=== PATIENT | female | born 1970 | race African-American/Black ===

== ENCOUNTER 2016-07-22 10:02 | Day surgery (SDC) | payer OTHER ==
[~2016-07-22] VITALS: Ht 175.3 cm; Wt 97.5 kg
[~2016-07-22 10:02] MED LIST: BUPIVACAINE MPF 0.5% 30 ML VIAL. ONE; CLINDAMYCIN 600MG PREMIX 50 ML IV PRN; DEXAMETHASONE SOD PHOS 4 MG/ML VIAL ONE; ESTROGENS, CONJ VAGINAL CREAM 30GM TUBE. ONE; HYDROmorphone 2 MG/ML VIAL IV PRN; IV RINGERS,LACTATED 1000ML 1,000 ML IV SCH; LIDOCAINE 1% 1 ML SYRINGE. ID PRN; LIDOCAINE 1% PF 30 ML VIAL. ONE; MORPHINE SULFATE 2 MG/ML DISP.SYRIN. IV PRN; ONDANSETRON PF 4 MG/2 ML VIAL. IV PRN; POVIDONE-IODINE 10% TOPICAL OINTMENT 28GM TUBE. TP ONE; PROCHLORPERAZINE 10 MG/2 ML VIAL. IV PRN; fentaNYL PF VIAL 100 MCG/2 ML VIAL IV PRN
[2016-07-22] MEDS ORDERED: PROPOFOL 20 ML IV ONE ×2 (10:34→12:32)
[2016-07-22] MEDS ORDERED: LIDOCAINE 2% PF Vial for OR 5 ML VIAL. ONE (10:34)
[2016-07-22] MEDS ORDERED: ONDANSETRON PF 4 MG/2 ML VIAL. ONE (10:34)
[2016-07-22] MEDS ORDERED: fentaNYL PF VIAL 100 MCG/2 ML VIAL ONE ×2 (10:34→12:36)
[2016-07-22] MEDS ORDERED: DEXAMETHASONE SOD PHOS 20 MG/5 ML VIAL. ONE (10:34)
[2016-07-22] MEDS ORDERED: NAPR220C4 PO (10:41)
[2016-07-22 11:02] LABS: NEG OBC UR NEG; POS OBC UR POS
[2016-07-22 11:21] LABS: BASO # 0.1 x10^3/uL (0.0-0.2); BASO % 1 % (0-3); EOS % 1 % (0-3); HEMATOCRIT 37.7 % (36.0-47.0); HEMOGLOBIN 13.4 g/dL (12.0-15.5); LYMPH # 1.3 x10^3/uL (1.0-4.8); LYMPH % 27 % (24-48); MEAN CORPUSCULAR HEMOGLOBIN 35 pg (25-35); MEAN CORPUSCULAR HGB CONC 35 g/dL (31-37); MEAN CORPUSCULAR VOLUME 99 fL (79-100); MONO % 12 % (0-9); NEUT % 60 % (31-73); PLATELET COUNT 239 x10^3/uL (140-400); RED BLOOD COUNT 3.82 x10^6/uL (3.50-5.40); RED CELL DISTRIBUTION WIDTH 13.8 % (11.5-14.5); WHITE BLOOD COUNT 5.1 x10^3/uL (4.0-11.0)
[2016-07-22 11:33] LABS: CALCIUM 8.8 mg/dL (8.5-10.1); CREATININE 0.8 mg/dL (0.6-1.0); GFR 94.7; POTASSIUM 5.2 mmol/L (3.5-5.1)
[2016-07-22] MEDS ORDERED: MIDAZOLAM HCL/PF 2 MG/2 ML VIAL. ONE (12:12)
--- NOTE | 2016-07-22 12:59 | PDOC4 ---
Operative Note Operative Note Surgeon: Bessie Pre op DX: Hammer toe left 2nd toe, corns/calluses bilateral foot Post Op DX: same Procedure: Arthrodesis of 2nd toe left foot with lengthening of extensor digitorum at 2nd MPJ left foot. Debridement of multiple hyperkeratosis lesions bilateral foot Anesthesia: MAC with local Hemostasis left ankle tourniquet at 250mmHg EBL: 0mL Materials 0.045 kwire Intraoperative findings consistent with diagnosis Patient tolerated anesthesia and procedure well, transferred to the PACU with VSS and VSI to left foot ROSSY HUTTON DPM July 22, 2016 12:59
[2016-07-22 13:22] VITALS: BP 152/98
--- NOTE | 2016-07-22 13:46 | RAD ---
Indication status post arthrodesis. AP oblique and lateral views of the left foot were obtained. Postoperative changes are noted. An orthopedic nail is noted extending through the phalanges of the second digit. Some postoperative changes are noted in the soft tissues. No unexpected finding is seen. IMPRESSION: Postop changes involving the second digit. No unexpected finding seen
--- NOTE | 2016-07-22 14:41 | HP ---
ADMIT DATE: 07/22/2016 CHIEF COMPLAINT: Hammertoe and fractured toe. HISTORY OF PRESENT ILLNESS: The patient is a pleasant middle-aged -[place] female, who was basically healthy. She has been having lot of problems with her toes, expression on the left. She has a hammertoe, she thinks she stepped on ____. She has got chronic pain. We have been requested to do a preoperative evaluation. She is going to have surgery just a few minutes. PAST MEDICAL HISTORY: Hypertension and previous remote tobacco abuse. ALLERGIES: None. FAMILY HISTORY: Hypertension. SOCIAL HISTORY: She is educated. She does not drink, smoke or take drugs. MEDICATIONS: Reviewed, please refer to the MRAD. REVIEW OF SYSTEMS: GENERAL: No history of weight change, weakness or fevers. SKIN: No bruising, hair changes or rashes. EYES: No blurred, double or loss of vision. NOSE AND THROAT: No history of nosebleeds, hoarseness or sore throat. HEART: No history of palpitations, chest pain or shortness of breath on exertion. LUNGS: Denies cough, hemoptysis, wheezing or shortness of breath. GASTROINTESTINAL: Denies changes in appetite, nausea, vomiting, diarrhea or constipation. GENITOURINARY: No history of frequency, urgency, hesitancy or nocturia. NEUROLOGIC: Denies history of numbness, tingling, tremor or weakness. PSYCHIATRIC: No history of panic, anxiety or depression. ENDOCRINE: No history of heat or cold intolerance, polyuria or polydipsia. EXTREMITIES: She complains of toe pain. PHYSICAL EXAMINATION: VITAL SIGNS: Stable. GENERAL: She is alert, cooperative, very pleasant, being examined by the nurse and having a blood drawn. HEART: Distant S1, S2. LUNGS: Clear. ABDOMEN: Soft, positive bowel sounds. EXTREMITIES: No edema that she does have several hammertoes on the left and right. ENDOCRINE: No thyromegaly. LYMPHATICS: No cervical nodes. HEMATOPOIETIC: No bruising. LABORATORY DATA: Pending. ASSESSMENT AND PLAN: James in clinically very stable in healthy young female, who will easily tolerate surgery. She is cleared for surgery. After surgery, she will need wound care. I am going to continue her home medicines, PT/OT. Thank you very much for allowing us to participate in the care of this nice lady. NIAL Frantz HERNANDEZ DO DR: Salud JOB#: [id number] / [id number]
--- NOTE | 2016-07-22 19:10 | OP ---
DATE OF SURGERY: 07/22/2016 PREOPERATIVE DIAGNOSES: Hammer digit syndrome, second toe, left foot and multiple hyperkeratotic and porokeratotic lesions, bilateral foot POSTOPERATIVE DIAGNOSIS: Multiple hypertrophic chronic and probe her total chronic lesions, bilateral foot. PROCEDURE: Arthrodesis of the second digit of the left foot as well as lengthening of the extensor digitorum at the level of the MPJ. Also, debridement of multiple calluses, bilateral foot. SURGEON: Lazaro La DPM ANESTHESIA: MAC with local. HEMOSTASIS: Left ankle tourniquet at 250 mmHg. INDICATIONS: The patient is a 45-year-old female with a painful swollen second digit, which is painful in gait, especially in shoe gear. The patient states that it was affecting her everyday life and causing her to not be able to exercise and ____ shoes. She also has multiple painful nucleated lesions, bilateral foot, where she had pain, being debrided in the office and wishes to have debridement of lesions while she is sedated. The preoperative diagnosis as well as possible risks, benefits, and complications were discussed in detail with the patient. All questions were answered. DESCRIPTION OF PROCEDURE: The patient was transported to the operating room via a cart and placed on the operating table in supine position. The patient was given IV clindamycin preoperatively. A well-padded tourniquet was placed over the left ankle, IV sedation was administered per anesthesia, and a digital block was given to the second digit consisting of a 1:1 mixture of 1% lidocaine plain and 0.5% Marcaine plain. Next, a #15 blade was utilized to debride the hyperkeratotic lesions to bilateral foot with noted microbleed to the sub-fifth metatarsal head of the right foot and into the lateral fifth digit of left foot. Hemostasis was achieved and applied gauze bandage. Next, the left foot was then prepped and draped in the usual aseptic manner. Attention was directed to the left foot. Esmarch bandage was used to exsanguinate the left foot and the left ankle tourniquet was inflated to 250 mmHg. Attention was next directed to the second toe, where a 2.5-cm linear incision over the proximal interphalangeal joint was made. This was deepened down to the level of the extensor tendon and the extensor tendon was transected transversely and the medial and lateral collateral ligaments were then transected as well. Noted some wearing of the cartilage of the base of the middle phalanx. A sagittal saw was then used to resect the head of the proximal phalanx as well as the base of the middle phalanx. The wound was copiously irrigated with sterile saline and a 0.045 K-wire was forwarded through the middle and distal phalanx and retrograded through the proximal phalanx and noted to be in rectus position and slightly dorsiflexed in the sagittal plain. Thus, a separate incision was made over the second metatarsophalangeal joint - 1 cm incision and this was deepened to the level of the tendon. The extensor digitorum tendon was then lengthened with incisions medial-lateral and [id number] just to lengthen the tendon and noted satisfactory alignment of the second toe. The wound was then copiously irrigated with sterile saline and the extensor tendon was re-approximated with 3-0 Vicryl and the skin was re-approximated with 4-0 nylon. The ____ was then placed on the wire and it was cut and capped. The dressing was placed with Betadine ointment, Adaptic gauze, 4 x 4, Kerlix bandage, and an Eder bandage. Ankle tourniquet was deflated and good perfusion was noted to all digits of the left foot. The patient is to keep dressing clean, dry, and intact and to follow up next week in the clinic. She is to call and schedule an appointment, and postop instructions are in the chart. LAZARO LA DPM DR: Sharifa JOB#: [id number] / [id number]
== END 2016-07-22 14:08 | disposition home or self-care (01) ==
LOC: SURG 10:02
PROVIDERS: ATTEND Podiatrist Foot & Ankle Surgery
DX: M20.42 Other hammer toe(s) (acquired), left foot (principal); L57.0 Actinic keratosis; Z90.49 Acquired absence of other specified parts of digestive tract; Z98.51 Tubal ligation status; Z72.89 Other problems related to lifestyle; Z82.49 Family history of ischemic heart disease and other diseases of the circulatory system
CPT/HCPCS: 28285; 36415; 73630; 80048; 81025; 85027; C1713; C1769; J2250; J2405; J2704; J3010; J3490; J1100

== ENCOUNTER 2019-11-28 19:09 | Emergency (ER) | payer MEDICAID, OTHER ==
[~2019-11-28] VITALS: Ht 175.3 cm; Wt 90.9 kg
[~2019-11-28 19:09] MED LIST changes: -BUPIVACAINE MPF 0.5% 30 ML VIAL. ONE; -CLINDAMYCIN 600MG PREMIX 50 ML IV PRN; -DEXAMETHASONE SOD PHOS 4 MG/ML VIAL ONE; -ESTROGENS, CONJ VAGINAL CREAM 30GM TUBE. ONE; -HYDROmorphone 2 MG/ML VIAL IV PRN; -IV RINGERS,LACTATED 1000ML 1,000 ML IV SCH; -LIDOCAINE 1% 1 ML SYRINGE. ID PRN; -LIDOCAINE 1% PF 30 ML VIAL. ONE; -MORPHINE SULFATE 2 MG/ML DISP.SYRIN. IV PRN; +NAPR220C4 PO; -ONDANSETRON PF 4 MG/2 ML VIAL. IV PRN; -POVIDONE-IODINE 10% TOPICAL OINTMENT 28GM TUBE. TP ONE; -PROCHLORPERAZINE 10 MG/2 ML VIAL. IV PRN; -fentaNYL PF VIAL 100 MCG/2 ML VIAL IV PRN
[2019-11-28 19:15] VITALS: BP 190/101
[2019-11-28] MEDS ORDERED: DEXAMETHASONE SOD PHOS 20 MG/5 ML VIAL. IM ONE (20:30)
[2019-11-28] MEDS ORDERED: KETOROLAC 30 MG/ML VIAL. IM ONE (20:30)
[2019-11-28] MEDS ORDERED: PRED20TA PO (20:39)
[2019-11-28] MEDS ORDERED: CYCL10TA2 PO (20:40)
--- NOTE | 2019-11-28 20:40 | PHYS DOC ---
Past Medical History Past Medical History: No Pertinent History Past Surgical History: Cholecystectomy, Additional Past Surgical Histo: LEFT TOE Smoking Status: Never Smoker Alcohol Use: Occasionally General Adult EDM: Chief Complaint: HIP PAIN HPI: HPI: Patient is a 49 year old AA female who presents to the emergency department with complaints of right low back pain that radiates to her right leg for the last 2 weeks. Patient states that the pain is worse with movement. She reports that she has gone to the chiropractor but it simply made her symptoms worse. She denies any saddle anesthesia, or incontinence of bowel/bladder. She denies any numbness, tingling, or weakness of the affected extremity. She describes the pain as a constant, sharp pain that is throbbing. She currently rates her pain a 10 out of 10 on the pain scale, she denies any alleviating factors and is tried taking ibuprofen and Tylenol at home for relief without any benefit. Review of Systems: Review of Systems: Constitutional: Denies fever or chills. [] Musculoskeletal: See HPI Integument: Denies rash. [] Neurologic: Denies focal weakness or sensory changes. [] Heart Score: Risk Factors: Risk Factors: DM, Current or recent (<one month) smoker, HTN, HLP, family history of CAD, obesity. Risk Scores: Score 0 - 3: 2.5% MACE over next 6 weeks - Discharge Home Score 4 - 6: 20.3% MACE over next 6 weeks - Admit for Clinical Observation Score 7 - 10: 72.7% MACE over next 6 weeks - Early Invasive Strategies Current Medications: Current Medications Medications (Trade) Dose Ordered Sig/[facility] Start Time Stop Time Status Last Admin Dose Admin Dexamethasone Sodium Phosphate (Decadron) 10 mg 1X ONCE 11/28/19 20:30 11/28/19 20:31 DC 11/28/19 20:29 10 MG Ketorolac Tromethamine (Toradol 30mg Vial) 30 mg 1X ONCE 11/28/19 20:30 11/28/19 20:31 DC 11/28/19 20:29 30 MG Allergies: Allergies: Allergies Coded Allergies Type Severity Reaction Last Updated Verified Penicillins Adverse Reaction Mild Nausea and Vomiting 07/22/16 Yes Physical Exam: PE: Constitutional: Well developed, well nourished, no acute distress, non-toxic appearance. [] HENT: Normocephalic, atraumatic, bilateral external ears normal, nose normal. [] Eyes: PERRLA, EOMI, conjunctiva normal, no discharge. [] Neck: Normal range of motion, no stridor. [] Cardiovascular:Heart rate regular rhythm Lungs & Thorax: Respirations even and unlabored, no retractions, no respiratory distress Back: No bony tenderness, right lumbar paraspinal tenderness to palpation with increased pain with right straight leg lift. Skin: Warm, dry, no erythema, no rash. [] Extremities: No cyanosis, ROM intact, no edema. [] Neurologic: Alert and oriented X 3, no focal deficits noted. [] Psychologic: Affect normal, judgement normal, mood normal. [] Current Patient Data: Vital Signs: Vital Signs Date Time Temp Pulse Resp B/P (MAP) Pulse Ox O2 Delivery O2 Flow Rate FiO2 11/28/19 19:15 98.2 81 16 190/101 (130) 98 Room Air 98.2 EKG: EKG: [] Radiology/Procedures: Radiology/Procedures: [] Course & Med Decision Making: Course & Med Decision Making Pertinent Labs and Imaging studies reviewed. (See chart for details) Offered to order an ultrasound of the patient's right leg after she expressed concerns of a blood clot. With no prior hx of DVT or PE and no risk factors I advised the patient that there is low probability for blood clot, I advised pt that her sx are most likely due to sciatica. Pt declined US that was offered. Pt was treated with IM Toradol and IM Decadron in the ER. PRescriptions written for prednisone and flexeril. I advised the pt to follow up with her PCP if sx persist, return to the ER if sx worsen. Pt verbalized an understanding of home care, medications, follow-up, and return to ED instructions and was in agreement with the plan of care. Dragon Disclaimer: Dragon Disclaimer: This electronic medical record was generated, in whole or in part, using a voice recognition dictation system. Departure Departure Impression: Primary Impression: Right-sided low back pain with sciatica Qualified Codes: M54.41 - Lumbago with sciatica, right side Disposition: 01 HOME, SELF-CARE Condition: STABLE Referrals: ABHAY CHEN MD (PCP) Patient Instructions: Sciatica, [id number] Additional Instructions: Fill the prescription(s) and use as directed. DO NOT START THE PREDNISONE UNTIL TOMORROW 11/29/19. Apply heat or ice for to sore areas as needed for comfort. Activity as tolerated. Follow up with your primary care doctor this week if symptoms persist, return to the ER if symptoms worsen. Scripts Cyclobenzaprine Hcl (CYCLOBENZAPRINE HCL) 10 Mg Tablet 1 TAB PO TID PRN for PAIN for 10 Days, #30 TAB 0 Refills Prov: TRU MIDDLETON APRN 11/28/19 Prednisone (PREDNISONE) 20 Mg Tablet 1 TAB PO UD for 12 Days, #15 TAB 2 tabs by mouth days 1,2,3 then 1.5 tabs by mouth days 4,5,6 then 1 tab by mouth days 7,8,9 then 0.5 tab by mouth day 10,11,12 Prov: TRU MIDDLETON APRN 11/28/19 Justicifation of Admission Dx: Justifications for Admission: Justification of Admission Dx: N/A TRU MIDDLETON APRN Nov 28, 2019 20:40
== END 2019-11-28 20:49 | disposition home or self-care (01) ==
LOC: ER 19:09
DX: M54.41 Lumbago with sciatica, right side (principal); Z90.49 Acquired absence of other specified parts of digestive tract; Z88.0 Allergy status to penicillin
CPT/HCPCS: 96372; 99284; J1100; J1885